=== PATIENT | male | born 2000 | race Caucasian/White ===

== ENCOUNTER 2021-09-20 17:24 | Emergency (ER) | payer MEDICAID ==
[~2021-09-20] VITALS: Ht 162.6 cm; Wt 95.5 kg
[2021-09-20 17:50] VITALS: BP 126/93
[2021-09-20 23:06] LABS: EOSINOPHILS # (AUTO) 0.1 X10'3 (0-0.9); MEAN CORPUSCULAR HEMOGLOBIN 30.8 PG (27.0-31.0); RED CELL DISTRIBUTION WIDTH 12.4 % (11.5-14.5)
[2021-09-20 23:08] LABS: BASOPHILS # (AUTO) 0.1 X10'3 (0-0.2); BASOPHILS % (AUTO) 0.8 % (0-1); EOSINOPHILS % (AUTO) 1.4 % (0-6); HEMATOCRIT 44.7 % (42.0-52.0); HEMOGLOBIN 15.8 g/dl (14.0-17.9); LYMPHOCYTES % (AUTO) 28.9 % (21-51); MEAN CORPUSCULAR HGB CONC 35.4 g/dL (33.0-36.5); MEAN CORPUSCULAR VOLUME 86.9 FL (78-98); MEAN PLATELET VOLUME 7.6 FL (7.4-10.4); MONOCYTES # (AUTO) 1.2 X10'3 (0-0.9); MONOCYTES % (AUTO) 17.3 % (2-12); NEUTROPHILS # (AUTO) 3.6 X10'3 (1.8-7.7); NEUTROPHILS % (AUTO) 51.6 % (42-75); PLATELET COUNT 301 X10'3 (140-440); RED BLOOD COUNT 5.14 X10'6 (4.70-6.10)
[2021-09-20 23:19] LABS: ANION GAP 11 (8-16); BLOOD UREA NITROGEN 10 MG/DL (7-18); BUN/CREATININE RATIO 10.1 (5.4-32.0); CHLORIDE 102 MMOL/L (99-107); CREATININE 0.99 MG/DL (0.60-1.10); GLUCOSE 84 MG/DL (70-104); POTASSIUM 3.8 MMOL/L (3.5-5.1); SODIUM 139 MMOL/L (135-145); TOTAL CARBON DIOXIDE 25.8 MMOL/L (24-32); eGFR > 90 ML/MIN
[2021-09-20 23:20] LABS: ALANINE AMINOTRANSFERASE 73 U/L (12-78); ALBUMIN 4.1 G/DL (3.4-5.0); ALKALINE PHOSPHATASE 89 IU/L (46-116); ASPARTATE AMINO TRANSFERASE 33 U/L (10-37); BILIRUBIN,TOTAL 2.2 MG/DL (0.1-1.0); CALCIUM 8.9 MG/DL (8.5-10.1); TOTAL PROTEIN 8.3 G/DL (6.4-8.2)
[2021-09-20 23:27] LABS: URINE AMPHETAMINE SCREEN NEGATIVE (Neg); URINE BARBITUATE SCREEN NEGATIVE (Neg); URINE BENZODIAZEPINES SCREEN NEGATIVE (Neg); URINE CANNABINOID SCREEN NEGATIVE (Neg); URINE COCAINE SCREEN NEGATIVE (Neg); URINE METHADONE SCREEN NEGATIVE (Neg); URINE OPIATE SCREEN NEGATIVE (Neg); URINE PHENCYCLIDINE SCREEN NEGATIVE (Neg)
== END 2021-09-20 23:29 | disposition home or self-care (01) ==
LOC: ER 17:25
DX: R55 Syncope and collapse (principal); R10.12 Left upper quadrant pain; R25.3 Fasciculation; Z56.0 Unemployment, unspecified
CPT/HCPCS: 36415; 80053; 80305; 85025; 93005; 99284

== ENCOUNTER 2024-06-21 09:58 | Emergency (ER) | payer MEDICAID ==
[~2024-06-21] VITALS: Ht 162.6 cm; Wt 93.3 kg
[2024-06-21 10:02] VITALS: TEMP 99.1
[2024-06-21] MEDS: normal saline 1000ml 1,000 ML IV ONE (10:41)
[2024-06-21 11:28] LABS: ALANINE AMINOTRANSFERASE 48 U/L (12-78); ALBUMIN 3.7 G/DL (3.4-5.0); ALBUMIN/GLOBULIN RATIO 0.9 (1.1-1.5); ALKALINE PHOSPHATASE 68 IU/L (46-116); ANION GAP 13 (8-16); ASPARTATE AMINO TRANSFERASE 25 U/L (10-37); BILIRUBIN,TOTAL 2.1 MG/DL (0.1-1.0); BLOOD UREA NITROGEN 10 MG/DL (7-18); BUN/CREATININE RATIO 8.5 (10.0-20.0); CALCIUM 8.3 MG/DL (8.5-10.1); CHLORIDE 102 MMOL/L (99-107); CREATININE 1.18 MG/DL (0.60-1.10); GLUCOSE 87 MG/DL (70-104); POTASSIUM 3.4 MMOL/L (3.5-5.1); SODIUM 139 MMOL/L (135-145); TOTAL CARBON DIOXIDE 24.2 MMOL/L (24-32); TOTAL PROTEIN 7.9 G/DL (6.4-8.2); eCRCL 80 ML/MIN; eGFR 75 ML/MIN
[2024-06-21 11:35] LABS: BASOPHILS % (AUTO) 0.3 % (0-1); EOSINOPHILS # (AUTO) 0.1 X10'3 (0-0.9); EOSINOPHILS % (AUTO) 1.2 % (0-6); HEMATOCRIT 45.6 % (42.0-52.0); LYMPHOCYTES # (AUTO) 2.5 X10'3 (1.1-4.8); LYMPHOCYTES % (AUTO) 20.3 % (21-51); MEAN CORPUSCULAR HEMOGLOBIN 31.1 PG (27.0-31.0); MEAN CORPUSCULAR HGB CONC 35.1 g/dL (33.0-36.5); MEAN CORPUSCULAR VOLUME 88.8 FL (78-98); MEAN PLATELET VOLUME 8.3 FL (7.4-10.4); MONOCYTES # (AUTO) 2.4 X10'3 (0-0.9); MONOCYTES % (AUTO) 19.2 % (2-12); NEUTROPHILS # (AUTO) 7.4 X10'3 (1.8-7.7); PLATELET COUNT 280 X10'3 (140-440); RED BLOOD COUNT 5.14 X10'6 (4.70-6.10); RED CELL DISTRIBUTION WIDTH 12.5 % (11.5-14.5); WHITE BLOOD COUNT 12.5 X10'3 (4.5-11.0)
[2024-06-21 11:56] LABS: TOTAL CELLS COUNTED 100
[2024-06-21 11:57] LABS: PLATELET ESTIMATE NORMAL
[2024-06-21 14:34] VITALS: BP 125/89; PULSE 70; RESP 24; O2SAT 97
== END 2024-06-21 14:36 | disposition home or self-care (01) ==
LOC: ER 09:59
DX: R55 Syncope and collapse (principal); R11.10 Vomiting, unspecified; R19.7 Diarrhea, unspecified
CPT/HCPCS: 72040; 80053; 85007; 85025; 93005; 96360; 99285; J7030